=== PATIENT | male | born 1980 | race Caucasian/White ===

== ENCOUNTER 2017-11-13 18:14 | Emergency (ER) | payer SELFPAY ==
[~2017-11-13] VITALS: Ht 175.3 cm; Wt 75.4 kg
[~2017-11-13 18:14] MED LIST: CELEXA20 M1 PO; CITALOPRAM40 MG PO; HYDROCHLOROT25 MG PO; LISINOPRIL10 MG PO; ZESTRIL OR
[2017-11-13] MEDS ORDERED: CLONIDINE0.1 MG PO (18:45)
[2017-11-13] MEDS ORDERED: REMERON15 MG PO (18:45)
[2017-11-13] MEDS ORDERED: CLEOCIN150 MG PO (18:50)
[2017-11-13 19:05] VITALS: BP 128/96
== END 2017-11-13 19:05 | disposition home or self-care (01) | DRG 603 ==
LOC: ED 18:14
DX: L03.115 Cellulitis of right lower limb (principal)

== ENCOUNTER 2018-04-23 16:11 | Emergency (ER) | payer SELFPAY ==
[~2018-04-23] VITALS: Ht 175.3 cm; Wt 70.5 kg
[~2018-04-23 16:11] MED LIST changes: +CLEOCIN150 MG PO; +CLONIDINE0.1 MG PO; +REMERON15 MG PO
[2018-04-23] MEDS ORDERED: DOXYCYC MONO100 M1 PO (18:45)
[2018-04-23 19:20] VITALS: BP 155/74
== END 2018-04-23 19:20 | disposition home or self-care (01) | DRG 605 ==
LOC: ED 16:11
PROC: 0H9KXZZ Drainage of Right Lower Leg Skin, External Approach (ICD-10-PCS; principal; 2018-04-23)
DX: S20.212A Contusion of left front wall of thorax, initial encounter (principal); L02.415 Cutaneous abscess of right lower limb; S00.83XA Contusion of other part of head, initial encounter; S30.0XXA Contusion of lower back and pelvis, initial encounter; S20.229A Contusion of unspecified back wall of thorax, initial encounter; W01.0XXA Fall on same level from slipping, tripping and stumbling without subsequent striking against object, initial encounter; Y93.01 Activity, walking, marching and hiking; Y92.414 Local residential or business street as the place of occurrence of the external cause; F17.210 Nicotine dependence, cigarettes, uncomplicated

== ENCOUNTER 2018-09-17 20:08 | Emergency (ER) | payer SELFPAY ==
[~2018-09-17] VITALS: Ht 175.3 cm; Wt 79.5 kg
[~2018-09-17 20:08] MED LIST changes: +DOXYCYC MONO100 M1 PO
[2018-09-17 21:12] LABS: URINE BLOOD DIPSTICK NEGATIVE (NEGATIVE); URINE COLOR YELLOW; URINE GLUCOSE - DIPSTICK NEGATIVE (NEGATIVE); URINE KETONE NEGATIVE (NEGATIVE); URINE LEUK ESTERASE NEGATIVE (NEGATIVE); URINE NITRITE - DIPSTICK NEGATIVE (Negative); URINE PROTEIN - DIPSTICK NEGATIVE (NEG-TRACE); URINE SPECIFIC GRAVITY 1.025; URINE UROBILINOGEN - DIPSTICK 0.2 E.U./dL (0.2)
[2018-09-17 21:13] LABS: HEMATOCRIT 43.9 % (39.0-50.0); HEMOGLOBIN 15.7 g/dl (14.0-18.0); IMMATURE GRANULOCYTES 0.2 % (0.0-5.0); MEAN CELL VOLUME 86.1 fL CALC (80.0-100.0); MEAN CORPUSCULAR HGB 30.8 pG CALC (26.0-32.0); MEAN CORPUSCULAR HGB CONC 35.8 g/L CALC (32.0-36.0); NEUT# 5.81 thou/uL (1.82-7.42); RED BLOOD COUNT 5.1 mill/uL (4.70-6.10); RED CELL DISTRI WIDTH 12.1 % (11.5-15.5)
[2018-09-17 21:16] LABS: BARBITURATES NEGATIVE (NEGATIVE); COCAINE NEGATIVE (NEGATIVE); METHADONE NEGATIVE (NEGATIVE); OXCYCODONE NEGATIVE (NEGATIVE); TETRAHYDROCANNABIONOL NEGATIVE (NEGATIVE); TRICYLIC ANTIDEPRESSANTS NEGATIVE (NEGATIVE)
[2018-09-17 21:17] LABS: URINE BILIRUBIN - DIPSTICK NEGATIVE (NEGATIVE); URINE CLARITY CLEAR
[2018-09-17 21:19] LABS: ALBUMIN 4.8 g/dL (3.2-5.0); ALKALINE PHOSPHATASE 66 u/l (38-126); ANION GAP 18 (6-22 (CALC)); BILIRUBIN, TOTAL 1.4 mg/dL (0.0-1.4); BUN 15 mg/dL (9-20); BUN/CREATININE RATIO 21 (12-20 (CALC)); CARBON DIOXIDE 28 mmol/l (22-30); CHLORIDE 97 mmol/l (95-108); CREATININE 0.7 mg/dL (0.7-1.3); GFR > 60 ML/MIN (>=60 (CALC)); GFR FOR AFR.AMER. > 60 ML/MIN (>=60 (CALC)); POTASSIUM 3.1 mmol/l (3.5-5.1); SGOT/AST 53 u/l (17-59); SODIUM 140 mmol/l (137-146); TOTAL PROTEIN 8.2 g/dL (6.3-8.2)
[2018-09-17 21:31] LABS: MYOGLOBIN 51 ng/mL (0 - 121)
[2018-09-17] MEDS ORDERED: FLEXERIL PO (21:43)
[2018-09-17] MEDS ORDERED: NAPROSYN500 MG PO (21:43)
[2018-09-17 23:21] VITALS: BP 148/71
== END 2018-09-17 23:17 | disposition home or self-care (01) | DRG 313 ==
LOC: ED 20:08
PROVIDERS: Emergency Medicine
DX: R07.89 Other chest pain (principal); M79.10 Myalgia, unspecified site; F19.10 Other psychoactive substance abuse, uncomplicated; I10 Essential (primary) hypertension; B19.20 Unspecified viral hepatitis C without hepatic coma; F17.200 Nicotine dependence, unspecified, uncomplicated; Z59.0 Homelessness

== ENCOUNTER 2023-05-25 20:42 | Emergency (ER) | payer SELFPAY ==
[~2023-05-25] VITALS: Ht 175.3 cm; Wt 58.0 kg
[~2023-05-25 20:42] MED LIST changes: +FLEXERIL PO; +NAPROSYN500 MG PO
[2023-05-25 22:00] VITALS: BP 139/92
[2023-05-25 22:49] LABS: BASO% 0.4 % (0-3); EOS% 1.3 % (0-8); IMMATURE GRANULOCYTES 0.5 % (0.0-5.0); LYMPH% 24.7 % (15-41); MEAN CELL VOLUME 85.9 fL CALC (80.0-100.0); MEAN CORPUSCULAR HGB 28.4 pG CALC (26.0-32.0); MONO% 6.1 % (2-13); NEUT# 5.74 thou/uL (1.82-7.42); RED BLOOD COUNT 3.7 mill/uL (4.70-6.10); RED CELL DISTRI WIDTH 12.6 % (11.5-15.5)
[2023-05-25 22:52] LABS: HEMATOCRIT 31.8 % (39.0-50.0); HEMOGLOBIN 10.5 g/dl (14.0-18.0)
[2023-05-25 23:05] LABS: ALKALINE PHOSPHATASE 76 u/l (38-126); BUN 14 mg/dL (9-20); BUN/CREATININE RATIO 22 (12-20 (CALC)); CARBON DIOXIDE 28 mmol/l (22-30); CHLORIDE 99 mmol/l (95-108); CREATININE 0.6 mg/dL (0.7-1.3); GFR FOR AFR.AMER. > 60 ML/MIN (>=60 (CALC)); GFR OTHER RACES > 60 ML/MIN (>=60 (CALC)); SGOT/AST 27 u/l (17-59); SODIUM 135 mmol/l (137-146); TOTAL PROTEIN 7.8 g/dL (6.3-8.2)
[2023-05-25 23:06] LABS: ANION GAP 13 (6-22 (CALC)); BILIRUBIN, TOTAL 0.4 mg/dL (0.2-1.3); POTASSIUM 4.8 mmol/l (3.5-5.1)
[2023-05-26 00:15] LABS: URINE BILIRUBIN - DIPSTICK Negative (NEGATIVE); URINE BLOOD DIPSTICK Negative (NEGATIVE); URINE GLUCOSE - DIPSTICK Negative (NEGATIVE); URINE KETONE Negative (NEGATIVE); URINE LEUK ESTERASE Negative (NEGATIVE); URINE NITRITE - DIPSTICK Negative (Negative); URINE PH 7.5 (4.5-8.0); URINE PROTEIN - DIPSTICK Negative (NEG-TRACE); URINE UROBILINOGEN - DIPSTICK 0.2 E.U./dL (0.2)
[2023-05-26 00:20] LABS: URINE COLOR Yellow
[2023-05-26] MEDS ORDERED: CLONIDINE0.2 MG PO (00:33)
[2023-05-26] MEDS ORDERED: SEROQUEL100 MG PO (00:33)
[2023-05-26] MEDS ORDERED: BACTRIM DS1 TAB PO (00:42)
[2023-05-26] MEDS ORDERED: CEPHALEXIN500 MG PO (00:42)
[2023-05-26 02:00] VITALS: BP 130/88
== END 2023-05-26 02:00 | disposition left against medical advice (07) | DRG 603 ==
LOC: ED 20:42
PROVIDERS: Emergency Medicine
DX: L03.114 Cellulitis of left upper limb (principal); F19.10 Other psychoactive substance abuse, uncomplicated; I10 Essential (primary) hypertension; B19.20 Unspecified viral hepatitis C without hepatic coma; F17.200 Nicotine dependence, unspecified, uncomplicated; Z86.14 Personal history of Methicillin resistant Staphylococcus aureus infection; Z53.29 Procedure and treatment not carried out because of patient's decision for other reasons